=== PATIENT | female | born 1970 | race Two or more races ===

== ENCOUNTER 2018-09-28 17:38 | Emergency (ER) | payer OTHER ==
[2018-09-28 18:03] VITALS: BP 136/93; PULSE 94; RESP 18; TEMP 98.3
[2018-09-28] MEDS ORDERED: PENICILLIN V POTASSIUM 250 MG TAB PO STA (18:53)
[2018-09-28] MEDS ORDERED: KETOROLAC 30 MG/ML 1 ML VIAL IM STA (18:53)
--- NOTE | 2018-09-28 19:04 | ED ---
ENT HPI - General Chief complaint: Dental/Oral Stated complaint: dental pain Time Seen by Provider: 09/28/18 18:44 Source: patient, RN notes reviewed Mode of arrival: ambulatory Limitations: no limitations - History of Present Illness Initial comments: This is a 47-year-old female who presents to the emergency department with chief complaint of dental pain. Patient states that she has a wisdom tooth that her old dentist told her needs to be removed, but she never did so. She states that for the past 2 days her tooth has been causing her pain. She states she feels she has an infection. Denies any drainage. He denies any fevers or chills. She does report jaw pain but no radiation to the neck. - Related Data Previous Rx's Medication Instructions Recorded Penicillin V Potassium [Pen Vee K] 500 mg PO QID 10 Days tab 09/28/18 Review of Systems ROS Statement: Those systems with pertinent positive or pertinent negative responses have been documented in the HPI. ROS Other: All systems not noted in ROS Statement are negative. Past Medical History Past Medical History: Hypertension History of Any Multi-Drug Resistant Organisms: None Reported Past Surgical History: Section Past Psychological History: No Psychological Hx Reported Smoking Status: Never smoker Past Alcohol Use History: None Reported Past Drug Use History: None Reported General Exam - General Exam Comments Initial Comments: General: Awake and alert, well-developed; in no apparent distress. HEENT: Head atraumatic, normocephalic. Pupils are equal, round and reactive to light. Extraocular movements intact. Oropharynx moist without erythema. Tooth # 17 missing part of crown. No abscesses or masses are identified. No facial swelling noted. Neck: Supple. Normal ROM. Cardiovascular: Regular rate and rhythm. No murmurs, rubs or gallops. Chest symmetrical. Respiratory: Lungs clear to auscultation bilaterally. No wheezes, rales or rhonchi. Normal respiratory effort with no use of accessory muscles. Musculoskeletal: Normal ROM, no tenderness bilateral upper and lower extremities. Ambulating normally. Skin: Od[place], warm and dry without rashes or lesions. Neurological: Alert and oriented x3 Psychiatric: Normal mood and affect. No overt signs of depression or anxiety noted. Limitations: no limitations Course Vital Signs 09/28/18 18:00 Temperature 98.3 F Pulse Rate 94 Respiratory 18 Rate Blood Pressure 136/93 O2 Sat by Pulse 98 Oximetry Medical Decision Making - Medical Decision Making This is a 47-year-old female who presents to the emergency department with chief complaint of dental pain. Patient has a wisdom tooth that was supposed to be removed long ago, however she never had it removed. It is now causing her pain. There is a small piece of the crown missing. She will be prescribed penicillin VK. Instructed her to alternate the use of Tylenol and Motrin. Recommended that she follow up with a dentist. Vital signs are stable and patient is in no acute distress. She will be discharged home at this time. All questions have been answered. Disposition Clinical Impression: Toothache, Impacted molar Disposition: HOME SELF-CARE Condition: Good Instructions: Toothache (ED) Additional Instructions: Please take medications as prescribed. As discussed, please follow up with dentist as soon as possible. Please follow up with primary care provider within 1-2 days. Return to emergency department if symptoms should worsen or any concerns arise. Prescriptions: Penicillin V Potassium [Pen Vee K] 500 mg PO QID 10 Days tab Is patient prescribed a controlled substance at d/c from ED?: No Referrals: Hector Magallon MD [Primary Care Provider] - 1-2 days Time of Disposition: 19:07
== END 2018-09-28 19:52 | disposition home or self-care (01) ==
LOC: EC 17:38
DX: K01.1 Impacted teeth (principal); K08.89 Other specified disorders of teeth and supporting structures
CPT/HCPCS: 99282; 96372; J1885